=== PATIENT | female | born 1970 | race Caucasian/White ===

== ENCOUNTER 2023-08-26 14:25 | Outpatient (CLI) | payer OTHER, SELFPAY | END 2023-08-26 14:26 | disposition home or self-care (01) | PROVIDERS: PCP Family Medicine; Visit Provider Family Medicine | DX: Z00.00 Encounter for general adult medical examination without abnormal findings (principal); L85.3 Xerosis cutis; Z11.59 Encounter for screening for other viral diseases | CPT/HCPCS: 86376; 86803 ==

== ENCOUNTER 2024-07-24 08:59 | Outpatient (CLI) | payer OTHER, SELFPAY | END 2024-07-24 09:00 | disposition home or self-care (01) | LOC: NFLDREF 07-28 09:59 | PROVIDERS: PCP Family Medicine; Referring Provider Family Medicine; Visit Provider Family Medicine | DX: D64.9 Anemia, unspecified (principal) | CPT/HCPCS: 80053 ==

== ENCOUNTER 2025-02-05 09:39 | Outpatient (CLI) | payer OTHER, SELFPAY | END 2025-02-05 09:40 | disposition home or self-care (01) | LOC: FRMREF 09:41 | PROVIDERS: PCP Family Medicine; Visit Provider Family Medicine | DX: R74.01 Elevation of levels of liver transaminase levels (principal); Z87.440 Personal history of urinary (tract) infections | CPT/HCPCS: 80053; 87086 ==

== ENCOUNTER 2025-04-11 08:25 | Outpatient (CLI) | payer OTHER, SELFPAY | END 2025-04-11 08:26 | disposition home or self-care (01) | LOC: NFLDREF 04-14 13:08 | PROVIDERS: PCP Family Medicine; Referring Provider Family Medicine; Visit Provider Obstetrics & Gynecology | DX: N39.0 Urinary tract infection, site not specified (principal); B96.20 Unspecified Escherichia coli [E. coli] as the cause of diseases classified elsewhere | CPT/HCPCS: 87086 ==

== ENCOUNTER 2025-05-22 09:09 | Outpatient (CLI) | payer OTHER, SELFPAY ==
[2025-05-22 18:49] LABS: Bacterial Vaginosis* Negative (Negative); Candida glab/krus NOT DETECTED (No Detected)
== END 2025-05-22 09:10 | disposition home or self-care (01) ==
PROVIDERS: PCP Family Medicine; Visit Provider Obstetrics & Gynecology
DX: N89.8 Other specified noninflammatory disorders of vagina (principal); R82.90 Unspecified abnormal findings in urine
CPT/HCPCS: 81513; 87086; 87481; 87661

== ENCOUNTER 2025-07-23 10:14 | Outpatient (CLI) | payer OTHER, SELFPAY | END 2025-07-23 10:15 | disposition home or self-care (01) | PROVIDERS: PCP Family Medicine; Visit Provider Family Medicine | DX: D64.9 Anemia, unspecified (principal); R74.01 Elevation of levels of liver transaminase levels; L68.0 Hirsutism; R82.90 Unspecified abnormal findings in urine; Z13.6 Encounter for screening for cardiovascular disorders; Z13.1 Encounter for screening for diabetes mellitus | CPT/HCPCS: 80053; 80061; 82306; 82607; 83540; 83550 ==

== ENCOUNTER 2025-10-15 17:06 | Outpatient (CLI) | payer OTHER, SELFPAY ==
--- NOTE | 2025-10-15 17:20 | CRLHL7_ITS ---
For Patients: As a result of the Century Cures Act, medical imaging exams and procedure reports are released immediately into your electronic medical record. You may view this report before your referring provider. If you have questions, please contact your health care provider. INDICATION: BILATERAL SCREENING MAMMOGRAM, ASYMPTOMATIC 54 Y/O FEMALE COMPARISON: 06/08/2022, 02/24/2021, 01/14/2020 TECHNIQUE: Digital mammogram in CC and MLO projections including computer-aided detection (CAD) and tomosynthesis. BREAST COMPOSITION: The breasts are heterogeneously dense, which may obscure small masses. FINDINGS: No suspicious findings. ASSESSMENT: BI-RADS 1 Negative RECOMMENDATION: Annual screening mammogram. A lay language report of this examination will be provided to the patient. Dictated by: Tyrell Powers MD @ 10/16/2025 12:44:22 (Electronically Signed)
== END 2025-10-15 17:07 | disposition home or self-care (01) ==
LOC: MAMMO 17:06
PROVIDERS: PCP Family Medicine; Visit Provider Family Medicine
DX: Z12.31 Encounter for screening mammogram for malignant neoplasm of breast (principal); R92.333 Mammographic heterogeneous density, bilateral breasts
CPT/HCPCS: 77063; 77067